=== PATIENT | female | born 1975 ===

== ENCOUNTER 2018-02-24 10:16 | Outpatient (CLI) | payer BC ==
--- NOTE | 2018-02-24 12:05 | Ultrasound Report ---
RIGHT BREAST/AXILLARY ULTRASOUND: 02/24/18 10:16:00 CLINICAL: Abnormal mammogram and right axillary pain. COMPARISON: [facility] mammogram 01/14/18 FINDINGS: Targeted ultrasound of the right axillademonstrated normal fat with no mass or cyst. No lymph nodes identified. IMPRESSION: Negative right axillary ultrasound. BI-RADS 1 - - Negative RECOMMENDATION: Clinical followup and routine mammographic screening.
== END 2018-02-24 10:17 | disposition home or self-care (01) ==
LOC: SPVWC 10:16
PROVIDERS: ATTEND Surgery
DX: N63.10 Unspecified lump in the right breast, unspecified quadrant (principal)